=== PATIENT | female | born 1940 | race Caucasian/White ===

== ENCOUNTER 2017-09-16 11:27 | Inpatient (IN) | payer MEDICARE, OTHER ==
[~2017-09-16] VITALS: Ht 160 cm; Wt 77.1 kg
[2017-09-16 12:30] LABS: BASOPHIL % 1.6 % (0-2); PLATELET COUNT 215 x10^3mcL (130-400)
[2017-09-16 12:31] LABS: microscopic required? YES; urine erythrocyte 1+ (NEGATIVE)
[2017-09-16 12:32] LABS: CALCIUM 8.5 mg/dL (8.5-10.1); CARBON DIOXIDE 24.2 mmol/L (21-32); CHLORIDE SERUM 107 mmol/L (98-107); GLUCOSE SERUM 249 mg/dL (74-106); RED CELL DISTRIBUTION WIDTH 16.7 % (11.5-14.5); SODIUM SERUM 142 mmol/L (136-145)
[2017-09-16 12:37] LABS: ALKALINE PHOSPHATASE 84 U/L (46-116); ALT/SGPT 30 U/L (14-59); AST/SGOT 40 U/L (15-37); BILIRUBIN TOTAL 0.34 mg/dL (0.20-1.00); CHOLESTEROL 138 mg/dL (<200); HDL CHOLESTEROL 38 mg/dL (40-60); TOTAL PROTEIN, SERUM 6.8 g/dL (6.4-8.2)
[2017-09-16 12:41] LABS: ALBUMIN 2.6 g/dL (3.4-5.0)
[2017-09-16 14:49] LABS: CHOLESTEROL/HDL RATIO 3.6; MAGNESIUM 1.9 mg/dL (1.8-2.4); PHOSPHOROUS 6.6 mg/dL (2.5-4.9); T3 TOTAL 1.22 ng/mL
[2017-09-16 15:02] LABS: FREE T4 1.05 ng/dL (0.76-1.46); FREE THYROXINE INDEX 2.7 ug/dL (1.4-4.5); T4(THYROXINE) 7.9 ug/dL (4.7-13.3)
[2017-09-16 15:26] VITALS: BP 97/52
[2017-09-16 18:06] VITALS: BP 112/57
[2017-09-16 22:30] VITALS: BP 115/49
[2017-09-17 06:36] VITALS: BP 122/56
[2017-09-17 07:45] VITALS: BP 129/56
[2017-09-17 14:22] VITALS: BP 124/60
[2017-09-17 17:50] VITALS: BP 124/54
[2017-09-17 20:56] VITALS: BP 90/45
[2017-09-18 05:46] VITALS: BP 116/51
[2017-09-18 07:35] VITALS: BP 112/56
[2017-09-18 09:07] VITALS: BP 112/59
[2017-09-18 18:06] VITALS: BP 104/68
[2017-09-18 21:34] VITALS: BP 117/63
[2017-09-19 05:21] VITALS: BP 127/55
[2017-09-19 10:27] VITALS: BP 112/44
[2017-09-19 13:11] VITALS: BP 103/47
[2017-09-19 17:59] VITALS: BP 112/61
[2017-09-19 20:00] VITALS: BP 132/60
[2017-09-20 06:47] VITALS: BP 132/53
[2017-09-20 10:55] VITALS: BP 123/60
[2017-09-20] MEDS ORDERED: ATIVAN1 MG PR (12:02)
[2017-09-20] MEDS ORDERED: ROXD PO (12:03)
[2017-09-20 12:20] VITALS: BP 123/60
[2017-09-20 13:48] VITALS: BP 139/65
== END 2017-09-20 17:22 | disposition hospice, home (50) | DRG 208 ==
LOC: ED 11:27 → MU 13:27 → DU 13:27 → MU 09-17 21:30 → DU 09-18 18:27
PROVIDERS: Emergency Medicine; ADMIT Family Medicine
PROC: 5A1935Z Respiratory Ventilation, Less than 24 Consecutive Hours (ICD-10-PCS; principal; 2017-09-16)
PROC: 0BH17EZ Insertion of Endotracheal Airway into Trachea, Via Natural or Artificial Opening (ICD-10-PCS; 2017-09-16)
PROC: 5A12012 Performance of Cardiac Output, Single, Manual (ICD-10-PCS; 2017-09-16)
DX: J69.0 Pneumonitis due to inhalation of food and vomit (principal); J96.00 Acute respiratory failure, unspecified whether with hypoxia or hypercapnia; N17.0 Acute kidney failure with tubular necrosis; I46.9 Cardiac arrest, cause unspecified; N39.0 Urinary tract infection, site not specified; R31.9 Hematuria, unspecified; R22.0 Localized swelling, mass and lump, head; E83.39 Other disorders of phosphorus metabolism; I45.10 Unspecified right bundle-branch block; Z66 Do not resuscitate; Z51.5 Encounter for palliative care; Z85.110 Personal history of malignant carcinoid tumor of bronchus and lung; Z74.01 Bed confinement status; Z22.322 Carrier or suspected carrier of Methicillin resistant Staphylococcus aureus
CPT/HCPCS: 82962; 83880; 84439; 92610-GN; J0171; J1100; J1170; J1885; J2270; J2405; J2704; J3010; J7030; J7613; J7644; Q0092